=== PATIENT | female | born 1995 | race Caucasian/White ===

== ENCOUNTER 2019-04-12 08:33 | Emergency (ER) | payer MEDICAID ==
[~2019-04-12] VITALS: Ht 162.6 cm; Wt 60.0 kg
[2019-04-12 10:30] VITALS: BP 104/56
== END 2019-04-12 10:50 | disposition home or self-care (01) ==
LOC: ED 10:39
DX: O23.11 Infections of bladder in pregnancy, first trimester (principal); J45.909 Unspecified asthma, uncomplicated; Z3A.00 Weeks of gestation of pregnancy not specified
CPT/HCPCS: 36415; 80048; 81001; 82040; 84703; 85025; 87086; 87147; 99283